=== PATIENT | male | born 1985 | race American Indian/Alaskan Native ===

== ENCOUNTER 2016-10-28 02:12 | Emergency (ER) | payer OTHER ==
[2016-10-28] MEDS ORDERED: MOTRIN PO ONE ×2 (02:37→05:00)
[2016-10-28] MEDS ORDERED: FLEXERIL ONE (04:53)
[2016-10-28] MEDS ORDERED: MOTRIN ONE (04:53)
[2016-10-28] MEDS ORDERED: FLEXERIL PO ONE (04:59)
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
[2016-10-28 06:16] VITALS: BP 120/78
== END 2016-10-28 06:16 | disposition home or self-care (01) ==
LOC: ED 02:12
DX: S39.012A Strain of muscle, fascia and tendon of lower back, initial encounter (principal); V49.49XA Driver injured in collision with other motor vehicles in traffic accident, initial encounter; Y93.9 Activity, unspecified; Y92.9 Unspecified place or not applicable; Y99.9 Unspecified external cause status
CPT/HCPCS: 99282

== ENCOUNTER 2017-06-07 23:01 | Emergency (ER) | payer SELFPAY ==
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
[2017-06-08] MEDS ORDERED: TORADOL IM ONE (00:16)
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
[2017-06-08 01:47] VITALS: BP 133/71
== END 2017-06-08 01:01 | disposition home or self-care (01) ==
LOC: ED 23:01
DX: S46.911A Strain of unspecified muscle, fascia and tendon at shoulder and upper arm level, right arm, initial encounter (principal); Y09 Assault by unspecified means; Y93.72 Activity, wrestling; Y92.89 Other specified places as the place of occurrence of the external cause; Y99.8 Other external cause status
CPT/HCPCS: 73030; 96372; 99283; J1885; J2930